=== PATIENT | male | born 1985 | race African-American/Black ===

== ENCOUNTER 2021-08-26 12:10 | Emergency (ER) | payer MEDICAID ==
[~2021-08-26] VITALS: Ht 180.3 cm; Wt 90.0 kg
[2021-08-26 13:08] VITALS: BP 127/81
== END 2021-08-26 13:10 | disposition left against medical advice (07) ==
LOC: ER 12:10
DX: R55 Syncope and collapse (principal); I45.6 Pre-excitation syndrome; Z71.89 Other specified counseling
CPT/HCPCS: 93005; 99283